=== PATIENT | male | born 1970 | race Caucasian/White ===

== ENCOUNTER 2016-11-26 22:59 | Emergency (ER) | payer SELFPAY ==
[~2016-11-26] VITALS: Ht 182.9 cm; Wt 65.8 kg
[2016-11-26 23:14] VITALS: BP_SYST 122
--- NOTE | 2016-11-26 23:30 | NUR ---
Patient to ER bed 2 to gown for evaluation. Side rails up. Report given to Samson GUPTA.
--- NOTE | 2016-11-26 23:43 | NUR ---
Patient to ED for eval of pain, redness, swelling to right wrist. S/P surgery from previous injury, patient reports drainage from surgical site-awaiting evaluation by ER MD
--- NOTE | 2016-11-27 01:20 | NUR ---
Dr Tompkins at bedside to evaluate patient. Awaiting orders, will continue to observe and assess
[2016-11-27 01:22] VITALS: BP_SYST 120
[2016-11-27 01:48] LABS: BASOPHILS # (AUTO) 0.1 K/uL (0.0-0.2); BASOPHILS % (AUTO) 1.2 % (0.0-2.0); EOSINOPHILS # (AUTO) 0.3 K/uL (0.0-0.4); EOSINOPHILS % (AUTO) 2.8 % (0.0-4.0); HEMATOCRIT 39.7 % (36-54); HEMOGLOBIN 13.7 g/dL (14.0-18.0); LYMPHOCYTES # (AUTO) 2.4 K/uL (1.0-5.5); LYMPHOCYTES % (AUTO) 22.7 % (20.5-51.5); MEAN CORPUSCULAR HEMOGLOBIN 31 pg (27-31); MEAN CORPUSCULAR HGB CONC 35 % (32-36); MEAN CORPUSCULAR VOLUME 90 fL (79.0-98.0); MONOCYTES # (AUTO) 0.6 K/uL (0.0-1.0); MONOCYTES % (AUTO) 5.6 % (1.7-9.3); NEUTROPHILS # (AUTO) 7.3 K/uL (1.8-7.7); NEUTROPHILS % (AUTO) 67.7 % (40.0-70.0); PLATELET COUNT (AUTO) 224 K/uL (130-430); RED BLOOD CELL COUNT(AUTO) 4.43 MIL/uL (4.2-6.2); RED CELL DISTRIBUTION WIDTH 13.3 % (9.0-15.0); WHITE BLOOD COUNT (AUTO) 10.7 K/uL (4.8-10.8)
[2016-11-27 01:49] LABS: CALCIUM 8.7 mg/dL (8.4-11.0); CREATININE 0.94 mg/dL (0.55-1.30); POTASSIUM 3.6 mmol/L (3.5-5.1)
[2016-11-27 01:55] LABS: ALBUMIN 3.6 g/dL (3.4-4.8); TOTAL BILIRUBIN 0.3 mg/dL (0.0-1.0); TOTAL PROTEIN, SERUM 6.7 g/dL (6.4-8.3)
[2016-11-27 02:58] LABS: ERYTHROCYTE SEDIMENTATION RATE 12 MM/HR (0-15)
--- NOTE | 2016-11-27 03:21 | NUR ---
Patient does not wish to proceed with medical care recommended by Dr Tompkins. Patient given information related to possible complications, up to and including , which could occur as a result of leaving hospital at this time. Patient verbalizes understanding of risks involved leaving against medical advice. Patient has signed AMA form.
== END 2016-11-27 03:22 | disposition left against medical advice (07) ==
LOC: SED 22:59
DX: L03.113 Cellulitis of right upper limb (principal); Z98.890 Other specified postprocedural states
CPT/HCPCS: 36415; 80053; 85025; 85651-TC; 99285

== ENCOUNTER 2017-07-04 12:11 | Emergency (ER) | payer OTHER ==
[~2017-07-04] VITALS: Ht 182.9 cm; Wt 65.8 kg
[2017-07-04 12:11] VITALS: BP_SYST 138
[2017-07-04 13:00] VITALS: BP_SYST 138
== END 2017-07-04 13:00 | disposition home or self-care (01) ==
LOC: SED 12:11
DX: G89.29 Other chronic pain (principal); M25.531 Pain in right wrist
CPT/HCPCS: 99284